=== PATIENT | male | born 1945 | race Caucasian/White ===

== ENCOUNTER 2024-03-10 17:55 | Emergency (ER) | payer OTHER, SELFPAY ==
[2024-03-10 18:00] VITALS: BP 180/100
[2024-03-10 18:19] VITALS: BP 160/86
[2024-03-10 18:52] VITALS: BP 172/85
[2024-03-10 19:00] VITALS: BP 155/84
--- NOTE | 2024-03-10 19:17 | ED.GENMED ---
History of Present Illness
General
Chief Complaint: Blood Pressure Problem
Source: patient
Time Seen by Provider: 03/10/24 18:47
History of Present Illness
History of Present Illness:
78yoM with a history of hypertension, COPD, and prior history of lung cancer currently in remission presenting via EMS for evaluation of elevated blood pressures. Patient has a history of hypertension and was previously maintained on amlodipine and
losartan. Patient had elevated blood pressures 2 days ago and was seen at the ED at the local [facility]. Amlodipine was discontinued at that time as this was thought to be causing leg swelling. His losartan dose was increased to 25 mg daily and
he was started on hydrochlorothiazide (patient unsure of the dose.) Patient started to not feel well this evening and checked his blood pressure which was elevated at 157/90 prompting him to call EMS. Patient states it feels like he is having a
panic attack. He reports lightheadedness. He also has increased thirst and urination since starting his water pill 2 days ago. He accidentally took 50 mg losartan today. He denies any chest pain, headache, shortness of breath. Patient admits to
being under a lot of stress recently.
Phy Exam
General Physical Exam
General Presentation: well appearing and no apparent distress
General age: appears stated age
General Skin: warm and dry
General Habitus: normal
General Mental: alert
ENT Exam
ENT Exam: normocephalic
Cardiovascular Exam
Cardiovascular Exam: regular rate/rhythm
Pulmonary Exam
Pulmonary Exam: lungs clear, no respiratory distress, no rales, no crackles, no rhonchi and no wheezing
Precious Coma Scale
Eye Opening: Spontaneous
Verbal Response: Oriented
Motor Response: Obeys Commands
GCS Total Score: 15
Skin Exam
Skin Exam: normal color and warm/dry
Psychiatric Exam
Psychiatric Exam: normal mood/affect
Course
Orders/Labs/Results
Orders:
Orders
03/10/24 19:17
Electrocardiogram (*1) Urgent
Reason for Study: Vertigo / Dizzy
EKG- Treatment ONCE
03/10/24 19:20
Complete Blood Count/With Diff Urgent
Comprehensive Metabolic Panel Urgent
Troponin I Urgent
Urinalysis Reflex To Culture Urgent
Date Specimen was Collected: 03/10/24
Time Specimen was Collected: 19:17
03/10/24 21:26
HydrOXYZINE [Atarax] 25 mg PO NOW STA
Abnormal Lab Results
03/10/24
19:20
RBC 4.51 L 10^6/uL
(4.70-6.10)
MCH 31.3 H pg
(27.0-31.0)
RDW 15.9 H %
(11.5-14.5)
Absolute Monos (auto) 1.2 H 10^3/uL
(0.1-0.6)
Lymphocytes % 14.2 L %
(20.5-51.1)
Monocytes % 13.1 H %
(1.7-9.3)
Sodium 132 L mmol/L
(135-145)
Chloride 95 L mmol/L
(98-107)
03/10/24 19:20
03/10/24 19:20
Vital Signs
Initial and Last Documented VS:
Initial Vital Signs
Temp Pulse Resp BP Pulse Ox
97.7 F 100 18 180/100 96
03/10/24 18:00 03/10/24 18:00 03/10/24 18:00 03/10/24 18:00 03/10/24 18:00
Last Documented Vital Signs
Temp Pulse Resp BP Pulse Ox
97.7 F 98 19 158/92 96
03/10/24 18:00 03/10/24 20:45 03/10/24 20:45 03/10/24 20:00 10/19/24 20:30
MDM/Problems Addressed
Differential Diagnosis Includes:
78yoM here with elevated BP and anxiety. Feels like he is having a panic attack. Seen at the [facility] 2 days ago for the same and medications were switched. BP 180/100 on arrival which improved to 155/84 on initial exam. No headache or chest
pain. He is well-appearing in no distress. Exam is reassuring. Differential diagnosis includes but is not limited to: hypertension, hypertensive urgency, hypertensive emergency, anxiety
Initial ED plan: Check cardiac labs and EKG.
*EKG
Interpreted by ED Provider?: Yes
EKG Intrepretation Date: 03/10/24
Heart Rate: 99
Rate: normal
Rhythm: sinus and PVC's
[place]ing [place]: normal axis
Interval: normal interval
QRS Pattern: normal QRS
Ischemia: no ischemia
*Critical Care Note
Total Time (30-74mins, 75-104mins- exclusive of procedures): Not Applicable
Update Note
Update Note:
Labs overall unremarkable including normal renal function. EKG shows normal sinus rhythm without ischemic changes and troponin within normal limits. Blood pressure 150/92 on reassessment. No signs of end organ dysfunction. No indication for
hospitalization at this time. Patient was just started on HCTZ 2 days ago. Discussed with patient that medication can take some time to work. Patient believes his high blood pressures for a results of his anxiety. Patient is requesting
medications for anxiety. Will trial course of hydroxyzine. He was advised to follow-up with his PCP. ED return precautions discussed. He expressed understanding and is agreeable to plan. He was discharged in stable condition.
ED Attending Note
-
Portions of this chart may have been created with voice recognition software.� Occasional wrong word or��sound alike� substitutions may have occurred due to the inherent limitations of voice recognition software.
Discharge Plan
Departure
Patient Disposition: Home (Routine Discharge)
Date of Disposition: 03/10/24
Time of Disposition: 20:59
Patient with high blood pressure during this ER visit?: Yes
Discharge Problem:
Hypertension, Anxiety
Instructions: High Blood Pressure (DC)
Prescriptions:
New
hydroxyzine HCl 25 mg tablet
25 mg PO TID PRN (Reason: anxiety) Qty: 20 0RF
Referrals:
NONE,* [Family Provider] -
Activity Restrictions/Additional Instructions:
Continue taking hydrochlorothiazide and losartan.
Please follow-up with your family doctor within 1 week for blood pressure recheck. Return to the ER with any worsening symptoms, severe headaches, stroke symptoms, chest pain.
Interventions
Interventions:
*Risk Screen - Suicide Last Done: 03/10/24 18:01
*General Assessment Last Done: 03/10/24 21:33
*Neglect/Abuse Screening Last Done: 03/10/24 18:01
ED- Fall Risk Assessment Last Done: 03/10/24 21:33
*ED COVID-19 Vaccine History Last Done: 03/10/24 21:33
*Nursing Disposition Last Done: 03/10/24 21:33
ED- Cardiac Assessment Last Done: 03/10/24 18:23
ED- Neurological Assessment Last Done: 03/10/24 18:23
ED- Pulmonary Assessment Last Done: 03/10/24 18:23
Discharge Date and Time
Discharge Date/Time: 03/10/24 21:33
Print Language: GREEK
[2024-03-10 19:36] LABS: % Basophils 0.6 % (0-2); % Immature Granulocytes 0.4 % (0-0.5); % Lymphocytes 14.2 % (20.5-51.1); % Monocytes 13.1 % (1.7-9.3); % Neutrophils 70.7 % (42.2-75.2); Absolute Basophils 0.1 10^3/uL (0-0.2); Absolute Eosinophils 0.1 10^3/uL (0-0.7); Absolute Lymphocytes 1.3 10^3/uL (1.2-3.4); Absolute Monocytes 1.2 10^3/uL (0.1-0.6); Absolute Neutrophils 6.4 10^3/uL (1.4-6.5); Hematocrit 41.5 % (39.0-52.0); Hemoglobin 14.1 g/dL (13.0-18.0); Mean Corpuscular Hgb 31.3 pg (27.0-31.0); Mean Platelet Volume 9.4 fL (7.4-10.4); Nucleated Red Blood Cells % 0 % (-); Platelet Count 275 10^3/uL (130-400); Red Blood Cell Count 4.51 10^6/uL (4.70-6.10); Red Cell Dist. Width 15.9 % (11.5-14.5)
[2024-03-10 19:44] LABS: Urine Albumin Negative (Neg - Trace); Urine Bilirubin Negative (Negative); Urine Character Clear (Clear); Urine Color Straw; Urine Glucose Negative (Negative); Urine Ketone Negative (Negative); Urine Leukocyte Negative (Negative); Urine Nitrite Negative (Negative); Urine Occult Blood Negative (Negative); Urine Urobilinogen Negative (Neg - 1+); Urine pH 6.5 (5.0-9.0)
[2024-03-10 19:54] LABS: ALT (SGPT) 22 U/L (0-50); AST (SGOT) 28 U/L (17-59); Albumin 4.5 g/dl (3.5-5.0); Alkaline Phosphatase 97 U/L (38-126); Blood Urea Nitrogen 16 mg/dl (9-20); Calcium 9.3 mg/dl (8.4-10.2); Carbon Dioxide 27 mmol/L (22-30); Chloride 95 mmol/L (98-107); Glucose 99 mg/dl (70-99); Potassium 4.2 mmol/L (3.5-5.1); Sodium 132 mmol/L (135-145); Total Bilirubin 0.4 mg/dl (0.2-1.3); Total Protein 7.3 g/dl (6.3-8.2); eGFR > 60.00
[2024-03-10 20:00] VITALS: BP 158/92
[2024-03-10 20:00] LABS: Troponin I < 0.012 ng/ml
[2024-03-10] MEDS: ATARAX 25 MG PO (21:29)
== END 2024-03-10 21:33 | disposition home or self-care (01) ==
LOC: EMR 17:55
PROVIDERS: Physician Assistant; EMERGENCY PHYSICIAN Emergency Medicine
DX: I10 Essential (primary) hypertension (principal); F41.9 Anxiety disorder, unspecified; J44.9 Chronic obstructive pulmonary disease, unspecified; Z85.118 Personal history of other malignant neoplasm of bronchus and lung; Z79.899 Other long term (current) drug therapy
CPT/HCPCS: 99284; 80053; 81003; 84484; 85025; 93005

== ENCOUNTER 2024-03-20 12:31 | Emergency (ER) | payer OTHER, SELFPAY ==
[2024-03-20 12:33] VITALS: BP 176/98
--- NOTE | 2024-03-20 12:58 | ED.GENMED ---
History of Present Illness
<Carissa Mancilla PA-C - Last Filed: 03/20/24 18:11>
General
Chief Complaint: Abdominal Symptoms
Source: patient
Exam Limitations: none
Time Seen by Provider: 03/20/24 12:53
Nursing documentation reviewed up to this point in time: agreed with
History of Present Illness
History of Present Illness:
78-year-old male with past medical history of hypertension, COPD, presents emergency department today with concerns of multiple days of abdominal bloating as well as multiple weeks of swelling in his lower extremities. Patient reports that he first
noticed the abdominal swelling a few days ago and noticed that because his close and paints felt tighter. Patient is never had this sensation before. Patient denies any abdominal pain, nausea, vomiting. Patient does note some diarrhea recently
and feels like his stools have been thinner, denies history of abdominal surgeries. Patient denies chest pain but does note exertional shortness of breath chronically. He states [facility] and does not follow regularly
with a primary care provider. He does not see a rod and tube straightener or any specialists.
Review of Systems
<Carissa Mancilla PA-C - Last Filed: 03/20/24 18:11>
Review of Systems
All Other Systems: ROS reviewed and negative except as documented in HPI and ROS
Phy Exam
<Carissa Mancilla PA-C - Last Filed: 03/20/24 18:11>
Physical Exam
Physical Exam:
General: Patient is well appearing and in no acute distress; non-toxic
Skin: Warm and dry, no rashes or lesions
Head: Normocephalic, atraumatic
Eyes: Sclera non-icteric. EOMs intact. PERRLA.
Cardiac: Regular rate and rhythm, no murmurs
Peripheral Vascular: Bilateral pitting lower extremity edema.
Pulm: Normal respiratory effort, no wheezes, rales, or rhonchi
Abdomen: No obvious abdominal distension. No abdominal tenderness to palpation, no rebound tenderness, no palpable masses.
Neuro: CN II-XII intact, no focal neurologic deficits.
Psychiatric: Appropriate mood and affect.
Course
<Carissa Mancilla PA-C - Last Filed: 03/20/24 18:11>
Orders/Labs/Results
Orders:
Orders
03/20/24 13:04
Complete Blood Count/With Diff Urgent
Comprehensive Metabolic Panel Urgent
Lipase Urgent
NT-proBNP Urgent
Troponin I Urgent
03/20/24 13:18
Add On- LAB Urgent
Tests Added?: troponin
CR Chest - 2 Views Urgent
Comment:
Reason For Exam: sob
Abnormal Lab Results
03/20/24
13:04
RBC 4.34 L 10^6/uL
(4.70-6.10)
MCHC 32.6 L g/dL
(33.0-37.0)
RDW 16.3 H %
(11.5-14.5)
Abs Immat Gran (auto) 0.1 H 10^3/uL
(0-0.05)
Absolute Monos (auto) 1.4 H 10^3/uL
(0.1-0.6)
Immature Gran % 0.8 H %
(0-0.5)
Monocytes % 15.8 H %
(1.7-9.3)
Carbon Dioxide 31 H mmol/L
(22-30)
BUN 21 H mg/dl
(9-20)
Glucose 106 H mg/dl
(70-99)
03/20/24 13:04
03/20/24 13:04
Vital Signs
Initial and Last Documented VS:
Initial Vital Signs
Temp Pulse Resp BP Pulse Ox
98.4 F 89 18 176/98 97
03/20/24 12:33 03/20/24 12:33 03/20/24 12:33 03/20/24 12:33 03/20/24 12:33
Last Documented Vital Signs
Temp Pulse Resp BP Pulse Ox
98.4 F 88 18 153/78 95
03/20/24 12:33 03/20/24 14:00 03/20/24 13:45 03/20/24 14:00 03/20/24 14:00
<Keyur Gonzalez, DO - Last Filed: 03/22/24 12:46>
Orders/Labs/Results
Orders:
Orders
03/20/24 13:04
Complete Blood Count/With Diff Urgent
Comprehensive Metabolic Panel Urgent
Lipase Urgent
NT-proBNP Urgent
Troponin I Urgent
03/20/24 13:18
Add On- LAB Urgent
Tests Added?: troponin
CR Chest - 2 Views Urgent
Comment:
Reason For Exam: sob
Abnormal Lab Results
03/20/24
13:04
RBC 4.34 L 10^6/uL
(4.70-6.10)
MCHC 32.6 L g/dL
(33.0-37.0)
RDW 16.3 H %
(11.5-14.5)
Abs Immat Gran (auto) 0.1 H 10^3/uL
(0-0.05)
Absolute Monos (auto) 1.4 H 10^3/uL
(0.1-0.6)
Immature Gran % 0.8 H %
(0-0.5)
Monocytes % 15.8 H %
(1.7-9.3)
Carbon Dioxide 31 H mmol/L
(22-30)
BUN 21 H mg/dl
(9-20)
Glucose 106 H mg/dl
(70-99)
03/20/24 13:04
03/20/24 13:04
Vital Signs
Initial and Last Documented VS:
Initial Vital Signs
Temp Pulse Resp BP Pulse Ox
98.4 F 89 18 176/98 97
03/20/24 12:33 03/20/24 12:33 03/20/24 12:33 03/20/24 12:33 03/20/24 12:33
Last Documented Vital Signs
Temp Pulse Resp BP Pulse Ox
98.4 F 88 18 153/78 95
03/20/24 12:33 03/20/24 14:00 03/20/24 13:45 03/20/24 14:00 03/20/24 14:00
<Carissa Mancilla PA-C - Last Filed: 03/20/24 18:11>
MDM/Problems Addressed
Differential Diagnosis Includes:
ddx include venous insufficiency, CHF, liver disease, nephrotic syndrome, bowel obstruction
MDM/Problems Addressed:
78-year-old male with past medical history of hypertension, COPD, presents emergency department today with concerns of multiple days of abdominal bloating as well as multiple weeks of swelling in his lower extremities. He denies abdominal pain,
chest pain. He has chronic DINERO. On exam, he is well appearing, in no acute distress, does have bilateral pitting edema of the lower extremities up to the mid tibia. There is no erythema, no wounds. His lungs are clear to auscultation bilaterally.
His CBC and CMP are unremarkable. His pro BNP and troponin as well as his chest x-ray do not suggest heart failure. Liver and kidney function normal. Suspect dependent edema, patient has a follow-up appoint with his PCP next week. Advise
elevation of the legs and use of compression leggings. Do not feel ultrasounds necessary at this time. Discussed return precautions with patient, patient stable for discharge
Chronic conditions affecting care:
COPD, HTN
Acute Exacerbation and/or Progression of Chronic Illness:
n/a
<Carissa Mancilla PA-C - Last Filed: 03/20/24 18:11>
*Radiology
Radiology exam reviewed: radiology read reviewed (Patient was noted to have a lung nodule today, patient is aware of this, patient does have a history of lung cancer currently in remission and has had radiation in the past)
*Pulse Oximetry
Patient hypoxic: no
*Critical Care Note
Total Time (30-74mins, 75-104mins- exclusive of procedures): Not Applicable
Data Reviewed
Review of Other/Old Records Reveals: Records (Reviewed ER physician documentation from 03/10/2024, patient seen for anxiety) and Discharge Summary (No discharge summary [facility] to review)
Source: patient and records
Prescriptions/Medications Considered But Not Given:
n/a
Further Testing Considered But Not Given:
n/a
<Carissa Mancilla PA-C - Last Filed: 03/20/24 18:11>
Patient Management
Escalation/DeEscalation of care consider admission/obs:
Admit not indicated, patient stable for discharge, reviewed case with my attending Dr. Gonzalez
ED Attending Note
<Carissa Mancilla PA-C - Last Filed: 03/20/24 18:11>
-
Portions of this chart may have been created with voice recognition software.� Occasional wrong word or��sound alike� substitutions may have occurred due to the inherent limitations of voice recognition software.
<Keyur Gonzalez, - Last Filed: 03/22/24 12:46>
ED Attending Note
Patient seen and examined by attending physician: Yes
I performed a history and physical exam of patient and discussed management with resident, I reviewed resident's note and agree with documented findings and plan of care.: Yes
ED Attending Note:
I have reviewed and agree with patient treatment plan by Carissa Mancilla. My exam revealed 78-year-old male with tibial edema. No signs of CHF. Possibly related to patient's use of amlodipine which she has discontinued. Patient stable for
discharge.
Discharge Plan
Departure
Patient Disposition: Home (Routine Discharge)
Date of Disposition: 03/20/24
Time of Disposition: 15:10
Patient with high blood pressure during this ER visit?: Yes
Condition: Good
Discharge Problem:
Swelling of both lower extremities
Instructions: Swelling, Gas and bloating, BLOOD PRESSURE
Prescriptions:
No Action
hydroxyzine HCl 25 mg tablet
25 mg PO TID PRN (Reason: anxiety) Qty: 20 0RF
Referrals:
UNKNOWN - PT DOES,NOT KNOW [Family Provider] -
Activity Restrictions/Additional Instructions:
Please follow-up with your primary care provider as scheduled next week.
Please keep your legs elevated, you can apply compression leggings.
Please return to the emergency department to develop chest pain, shortness of breath, abdominal pain, lightheadedness, dizziness, weakness on one-sided body versus other, confusion, difficulty speaking, or any other signs or symptoms concerning to
you.
Interventions
Interventions:
*Risk Screen - Suicide Last Done: 03/20/24 12:33
*General Assessment Last Done: 03/20/24 12:33
*Neglect/Abuse Screening Last Done: 03/20/24 12:33
*ED COVID-19 Vaccine History Last Done: 03/20/24 12:33
*Nursing Disposition Last Done: 03/20/24 15:19
[facility]Kc[facility]-Bzudzhbnxo Assessment Last Done: 03/20/24 13:06
Discharge Date and Time
Discharge Date/Time: 03/20/24 15:19
Print Language: INDIAN
[2024-03-20 13:07] VITALS: BP 164/98
[2024-03-20 13:25] LABS: % Basophils 0.4 % (0-2); % Eosinophils 1.9 % (0-6); % Immature Granulocytes 0.8 % (0-0.5); % Lymphocytes 21.1 % (20.5-51.1); % Monocytes 15.8 % (1.7-9.3); Absolute Eosinophils 0.2 10^3/uL (0-0.7); Absolute Immature Granulocytes 0.1 10^3/uL (0-0.05); Absolute Lymphocytes 1.9 10^3/uL (1.2-3.4); Absolute Monocytes 1.4 10^3/uL (0.1-0.6); Absolute Neutrophils 5.4 10^3/uL (1.4-6.5); Hematocrit 40.2 % (39.0-52.0); Hemoglobin 13.1 g/dL (13.0-18.0); Mean Corp Hgb Conc. 32.6 g/dL (33.0-37.0); Mean Corpuscular Hgb 30.2 pg (27.0-31.0); Mean Corpuscular Volume 92.6 fL (80.0-94.0); Mean Platelet Volume 10.2 fL (7.4-10.4); Nucleated Red Blood Cells % 0 % (-); Platelet Count 301 10^3/uL (130-400); Red Blood Cell Count 4.34 10^6/uL (4.70-6.10); Red Cell Dist. Width 16.3 % (11.5-14.5)
[2024-03-20 13:38] LABS: ALT (SGPT) 21 U/L (0-50); AST (SGOT) 25 U/L (17-59); Alkaline Phosphatase 72 U/L (38-126); Blood Urea Nitrogen 21 mg/dl (9-20); Calcium 9.6 mg/dl (8.4-10.2); Carbon Dioxide 31 mmol/L (22-30); Chloride 101 mmol/L (98-107); Glucose 106 mg/dl (70-99); Lipase 161 U/L (23-300); Potassium 4.6 mmol/L (3.5-5.1); Sodium 139 mmol/L (135-145); Total Bilirubin 0.2 mg/dl (0.2-1.3); Total Protein 6.5 g/dl (6.3-8.2); eGFR > 60.00
[2024-03-20 13:49] LABS: NT-proBNP 204 pg/ml; Troponin I < 0.012 ng/ml
[2024-03-20 14:00] VITALS: BP 153/78
== END 2024-03-20 15:19 | disposition home or self-care (01) ==
LOC: EMR 12:31
PROVIDERS: Emergency Medicine; EMERGENCY PHYSICIAN Emergency Medicine
DX: R22.43 Localized swelling, mass and lump, lower limb, bilateral (principal); I10 Essential (primary) hypertension; J44.9 Chronic obstructive pulmonary disease, unspecified
CPT/HCPCS: 99284; 71046; 80053; 83690; 83880; 84484; 85025